=== PATIENT | female | born 1985 | race Caucasian/White ===

== ENCOUNTER 2016-05-26 12:15 | Emergency (ER) | payer OTHER ==
[2016-05-26 12:43] VITALS: BP 115/75; PULSE 77; RESP 20; TEMP 98.1
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
== END 2016-05-26 16:01 | disposition left against medical advice (07) ==
LOC: EC 12:15
DX: Z76.0 Encounter for issue of repeat prescription (principal); Z88.0 Allergy status to penicillin; Z91.040 Latex allergy status; Z88.8 Allergy status to other drugs, medicaments and biological substances
CPT/HCPCS: 99281